=== PATIENT | male | born 2000 | race Two or more races ===

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

== ENCOUNTER 2018-12-13 15:51 | Emergency (ER) | payer MEDICAID, OTHER ==
[~2018-12-13] VITALS: Ht 180.3 cm; Wt 115.7 kg
[~2018-12-13 15:51] MED LIST changes: +NKM
[2018-12-13] MEDS ORDERED: Albuterol/Ipratropium 3ml neb HHN ONE (16:30)
[2018-12-13] MEDS ORDERED: Benzonatate 100mg Perles ORAL ONE (16:30)
[2018-12-13 16:32] VITALS: BP 119/84
--- NOTE | 2018-12-13 16:34 | NUR ---
ED Nurse Note: pt present at ER with family c/o coughing with white, yellow and thick phlem present. pt aao x4 and age appropriate. skin clean and intact.
--- NOTE | 2018-12-13 16:34 | Emergency Room Report ---
History of Present Illness General Chief Complaint: Upper Respiratory Illness Source: Patient Present Illness HPI 18-year-old male patient presents the ER brought in by mother complaining of cough, congestion, fever for the past 3 days. Patient currently afebrile in ER. Denies history of heart attack or asthma. Reports breathing symptoms worse at night with cough. Reports cough with sputum. Denies hemoptysis. Denies recent travel outside the country. Denies chest pain. Denies history of heart disease. States his been taking Tylenol Motrin for relief of symptoms. Reports last dose given earlier today. Reports sick contacts at home with similar symptoms. Reports up-to-date on vaccinations. Denies other aggravating or relieving factors. Denies vomiting or diarrhea. Denies abdominal pain. Patient currently being seen in the ER with his brother for similar symptoms. Reports younger brother at home with similar symptoms who is sick "before" he got sick. Reports did not receive flu vaccine this year. Allergies: Coded Allergies: No Known Allergies (Unverified , 06/06/17) Patient History Past Medical History: see triage record Reviewed Nursing Documentation: PMH: Agreed; PSxH: Agreed Nursing Documentation-PMH Past Medical History: No Stated History Review of Systems All Other Systems: negative except mentioned in HPI Physical Exam Vital Signs Date Time Temp Pulse Resp B/P (MAP) Pulse Ox O2 Delivery O2 Flow Rate FiO2 12/13/18 16:07 99.0 106 18 126/73 96 Room Air Sp02 EP Interpretation: reviewed, normal General Appearance: well appearing, no apparent distress, alert, GCS 15, non- toxic Head: normocephalic, atraumatic Eyes: bilateral eye normal inspection, bilateral eye PERRL ENT: hearing grossly normal, normal pharynx, no angioedema, normal voice, TMs + canals normal, uvula midline, moist mucus membranes, nasal congestion, other - Uvula midline Neck: full range of motion, no meningismus, no bony tend Respiratory: chest non-tender, lungs clear, no rhonchi, no respiratory distress , no accessory muscle use, no wheezing, decreased breath sounds, speaking full sentences, other - No stridor Cardiovascular #1: regular rate, rhythm, no edema Gastrointestinal: non tender, soft, no mass, non-distended, no guarding, no rebound Genitourinary: no CVA tenderness Musculoskeletal: back normal, digits/nails normal, gait/station normal, normal range of motion, non-tender Neurologic: alert, oriented x3, responsive, motor strength/tone normal, sensory intact Skin: no rash Lymphatic: no adenopathy Medical Decision Making PA Attestation Dr. Dash is my supervising Physician whom patient management has been discussed with. Diagnostic Impression: Primary Impression: Bronchitis ER Course Pt presents to ED c/o cough, congestion, fever, shortness of breath. DDX considered but are not limited to influenza, viral URI, pneumonia, strep throat, rhinitis, sinusitis, otitis media, otitis externa. On PE, chest is TTP; chest pain likely musculoskeletal in nature secondary to cough, does not require cardiac workup at this time. Patient instructed to take NSAIDs as needed for pain symptoms. VITAL SIGNS are WNL, patient is afebrile. ER COURSE Lung sounds decreased, no wheezes rhonchi or rales, ordered breathing treatment for patient. CXR negative for acute disease, no consolidation consistent with pneumonia per the preliminary reading , does not require antibiotics. Patient provided with prednisone and Tessalon Perles. Duoneb breathing treatment provided. Following treatment patient states no longer having difficulty with breathing, lung sounds improved. Patient is resting comfortably in no acute distress. no tonsillar exudates, no pharyngeal erythema, history of cough, no fever, no stridor, uvula midline, low suspicion for peritonsillar abscess. Likely viral etiology of symptoms. Symptomatic treatment. drink plenty of fluids. Salt water gargles for sore throat. Followup with PCP for further treatment and/or referral as needed. DISCHARGE: -Rx given for Motrin/Ibuprofen for fever/pain. -Rx given for Prednisone. -Rx provided for Albuterol MDI. -Rx provided for Tessalon Perles At this time pt is stable for d/c to home. Patient is resting comfortably, in no acute distress, nontoxic appearing. Patient to take medications as instructed Will provide with patient care instructions and any necessary prescriptions. Care plan and follow-up instructions provided. Patient instructed to follow-up with primary care provider in 3 - 5 days. Patient questions asked and answered. Patient reports understanding and agreement to treatment plan. ER precautions given. Patient instructed to return to ER immediately for any new or worsening of symptoms including but not limited to increasing SOB, persistent fever, intractable vomiting. - Please note that this Emergency Department Report was dictated using [employer] support specialist technology software, occasionally this can lead to erroneous entry secondary to interpretation by the dictation equipment. Chest X-Ray Diagnostic Results Chest X-Ray Diagnostic Results : Chest X-Ray Ordered: Yes # of Views/Limited/Complete: 1 View Indication: Chest Pain EP Interpretation: Yes PA Xray: Interpretation reviewed, by supervising MD, and agrees with findings. Interpretation: no consolidation, no effusion, no pneumothorax, no acute cardiopulmonary disease Impression: No acute disease WILBUR Scribfrancesca Text Kelvin Martinez PA-C Last Vital Signs Date Time Temp Pulse Resp B/P (MAP) Pulse Ox O2 Delivery O2 Flow Rate FiO2 12/13/18 16:32 119 18 Room Air 12/13/18 16:07 99.0 126/73 96 Status: improved Disposition: HOME, SELF-CARE Condition: Stable Scripts Benzonatate* (TESSALON PERLE*) 100 Mg Capsule 100 MG ORAL THREE TIMES A DAY, #20 PERLE Prov: Brenton Martinez 12/13/18 Ibuprofen* (MOTRIN*) 600 Mg Tablet 600 MG ORAL Q8H PRN for For Pain, #30 TAB 0 Refills Prov: Brenton Martinze 12/13/18 Albuterol Sulfate* (ALBUTEROL SULFATE MDI*) 8.5 Gm Hfa.aer.ad 2 PUFF INH Q6H, #1 INH 0 Refills Prov: Brenton Martinez 12/13/18 Prednisone* (PREDNISONE*) 20 Mg Tablet 40 MG ORAL DAILY for 4 Days, #8 TAB Prov: Brenton Martinez 12/13/18 Patient Instructions: Acute Bronchitis, [id number], Upper Respiratory Infection, Adult Additional Instructions: Followup with primary care provider in 3 -5 days. Drink plenty fluids. Take medications as directed. Patient questions asked and answered. ER precautions given, patient instructed to return to ER immediately for any new or worsening of symptoms. Brenton Martinez Dec 13, 2018 16:34
--- NOTE | 2018-12-13 16:56 | Diagnostic Imaging Report ---
Indication: Cough Technique: One view of the chest Comparison: none Findings: Lungs and pleural spaces are clear. Heart size is normal Impression: No acute process
[2018-12-13] MEDS ORDERED: IBUPROFEN600 MG ORAL (17:19)
[2018-12-13] MEDS ORDERED: PREDNISONE20 MG ORAL (17:19)
[2018-12-13] MEDS ORDERED: ALBUTEROL SULF8.5 GM INH (17:19)
[2018-12-13] MEDS ORDERED: TESSALON PERLE100 MG ORAL (17:19)
[2018-12-13 17:30] VITALS: BP 112/74
--- NOTE | 2018-12-13 17:32 | NUR ---
ER DISCHARGE NOTE: Patient is cleared to be discharged per ERMD, pt is aox4, accompanied by mother and brother, on room air, with stable vital signs. pt was given dc and prescription instructions, pt was able to verbalize understanding, pt id band removed. pt is able to ambulate with steady gait. pt took all belongings.
== END 2018-12-13 17:30 | disposition home or self-care (01) ==
LOC: EMR 16:46
DX: J40 Bronchitis, not specified as acute or chronic (principal)
CPT/HCPCS: 71045; 94640; 99284; J7512; J7620

== ENCOUNTER 2020-06-10 00:21 | Emergency (ER) | payer SELFPAY ==
[~2020-06-10] VITALS: Ht 182.9 cm; Wt 113.4 kg
[~2020-06-10 00:21] MED LIST changes: +ALBUTEROL SULF8.5 GM INH; +PREDNISONE20 MG ORAL; +TESSALON PERLE100 MG ORAL
[2020-06-10 00:40] VITALS: BP 163/98
--- NOTE | 2020-06-10 00:40 | NUR ---
ED Nurse Note: Patient walked into ED from home for c/o throat discomfort. Patient states he ate salmon two weeks ago and swallowed a fish bone and thought it had passed. He reports he is now feeling discomfort from the bone that he thinks is still stuck in his throat. Patient is able to speak in full sentences and does not appear to be in any respiratory distress at this time. Patient is aaox4 with normal breathing and stable oxygen saturation. He is ambulatory with steady gait. Will continue to monitor for change in condition.
--- NOTE | 2020-06-10 01:06 | Emergency Room Report ---
History of Present Illness General Chief Complaint: General Complaint Source: Patient Present Illness [facility] This a 20-year-old male with no past medical history. He presents with chief complaint of possible foreign body in his throat. He said 2 weeks ago he ate salmon that may have a bone in it. Initially he felt some pain to his throat 2 weeks ago and noticed a little bit of blood when he coughed. He try eating peanut butter and drink a lot of fluid and it got better. He had no issue until tonight. Now he felt that there is some mucus to his left side of his throat. Little discomfort. No pain however. No fever chills but no cough or congestion. No sick contact. Allergies: Coded Allergies: No Known Allergies (Unverified , 06/06/17) COVID-19 Screening Contact w/high risk pt: No Experienced COVID-19 symptoms?: No COVID-19 Testing performed CIRCUS HAND: No Patient History Past Medical History: see triage record, old chart reviewed Past Surgical History: none Pertinent Family History: none Social History: Denies: smoking Immunizations: other Reviewed Nursing Documentation: PMH: Agreed; PSxH: Agreed Nursing Documentation-PMH Past Medical History: No Stated History Review of Systems Eye: Denies: eye pain, blurred vision ENT: Denies: ear pain, nose congestion, throat swelling Respiratory: Denies: cough, shortness of breath Cardiovascular: Denies: chest pain, palpitations Gastrointestinal: Denies: abdominal pain, diarrhea, nausea, vomiting Musculoskeletal: Denies: back pain, joint pain Skin: Denies: rash Neurological: Denies: headache, numbness Endocrine: Denies: increased thirst, increased urine Hematologic/Lymphatic: Denies: easy bruising All Other Systems: negative except mentioned in HPI Physical Exam Vital Signs Date Time Temp Pulse Resp B/P (MAP) Pulse Ox O2 Delivery O2 Flow Rate FiO2 06/10/20 00:32 98.6 97 20 163/98 (119) 99 Room Air Vitals with high blood pressure Sp02 EP Interpretation: reviewed, normal General Appearance: well appearing, no apparent distress, alert Head: normocephalic, atraumatic Eyes: bilateral eye PERRL, bilateral eye EOMI ENT: hearing grossly normal, normal pharynx Neck: full range of motion, supple, no meningismus Respiratory: chest non-tender, lungs clear, normal breath sounds Cardiovascular #1: regular rate, rhythm, no murmur Gastrointestinal: normal bowel sounds, non tender, no mass, no organomegaly, no bruit, non-distended Musculoskeletal: back normal, normal range of motion, gait/station normal Psychiatric: mood/affect normal Medical Decision Making Diagnostic Impression: Primary Impression: Foreign body sensation in throat Additional Impression: Hypertension Qualified Codes: I10 - Essential (primary) hypertension ER Course Patient with a foreign body sensation in his throat. He had a sensation 2 weeks ago and it went away. Now came back tonight. I doubt that there is a residual foreign body for 2 weeks. Patient is otherwise stable. There is no pain with it. No evidence of perforation. This could be beginning of a viral type of illness. Because of the pandemic, I sent a COVID test. This is negative. Patient also said that he gained a lot of weight during the lockdown. This been attributed to his blood pressure being elevated. Will discharge home. Other X-Ray Diagnostic Results Other X-Ray Diagnostic Results : X-Ray ordered: Soft tissue neck x-rays # of Views/Limited Vs Complete: 3 View Indication: Pain EP Interpretation: Yes Interpretation: no dislocation, no soft tissue swelling, no fractures Impression: No acute disease Electronically Signed by: Wesley Hatch MD Last Vital Signs Date Time Temp Pulse Resp B/P (MAP) Pulse Ox O2 Delivery O2 Flow Rate FiO2 06/10/20 00:40 98.6 97 20 163/98 99 Room Air Status: improved Disposition: HOME, SELF-CARE Condition: Stable Scripts Amlodipine Besylate (Norvasc) 10 Mg Tablet 5 MG ORAL DAILY, #30 TAB Prov: Wesley Hatch MD 06/10/20 Referrals: NOT CHOSEN IPA/,REFERRING (PCP) Additional Instructions: Follow-up with your doctor in 7 days. See ear nose and throat doctor for endoscopy. Return if symptoms worsen. Your blood pressure is high. Check your blood pressure at home. Take blood pressure medication if continues to be elevated if systolic blood pressures above 130 or diastolic above 80. Wesley Hatch MD Jun 10, 2020 01:06
[2020-06-10 01:30] VITALS: BP 152/95
[2020-06-10] MEDS ORDERED: NORVASC10 MG ORAL (01:52)
[2020-06-10 02:00] VITALS: BP 155/98
--- NOTE | 2020-06-10 02:00 | NUR ---
ER DISCHARGE NOTE: Patient is cleared to be discharged per ERMD, pt is aox4, on room air, with stable vital signs. pt and ERMD aware of elevated BP, pt instructed to see a primary care doctor for management of BP. pt was given dc and prescription instructions, pt was able to verbalize understanding, pt id band removed. pt is able to ambulate with steady gait. pt took all belongings.
--- NOTE | 2020-06-10 14:00 | Diagnostic Imaging Report ---
Indication: Foreign body sensation in the throat Technique: 2 views of the neck with soft tissue technique Comparison: none Findings: What is presumably artifact from hair degrades the AP view. No definite radiopaque foreign body demonstrated. No prevertebral soft tissue swelling. No epiglottic swelling. No hypopharyngeal distention or glottic narrowing Impression: No radiopaque foreign body visualized
== END 2020-06-10 02:00 | disposition home or self-care (01) ==
LOC: EMR 00:50
DX: R09.89 Other specified symptoms and signs involving the circulatory and respiratory systems (principal); I10 Essential (primary) hypertension
CPT/HCPCS: 70360; 99283; U0002